=== PATIENT | male | born 1975 | race African-American/Black ===

== ENCOUNTER 2019-09-27 16:00 | Outpatient (CLI) | payer BC | END 2019-09-27 16:01 | disposition home or self-care (01) | LOC: SLEEPLAB 16:00 | PROVIDERS: ATTEND Family Medicine | DX: G47.33 Obstructive sleep apnea (adult) (pediatric) (principal); R06.83 Snoring; I10 Essential (primary) hypertension | CPT/HCPCS: 95806 ==

== ENCOUNTER 2019-10-11 20:30 | Outpatient (CLI) | payer BC | END 2019-10-11 20:31 | disposition home or self-care (01) | LOC: SLEEPLAB 20:30 | PROVIDERS: ATTEND Family Medicine | DX: G47.33 Obstructive sleep apnea (adult) (pediatric) (principal); R06.83 Snoring; I10 Essential (primary) hypertension | CPT/HCPCS: 95811 ==

== ENCOUNTER 2020-11-19 15:49 | Outpatient (CLI) | payer BC | END 2020-11-19 15:50 | disposition home or self-care (01) | LOC: BICRAD 15:49 | PROVIDERS: ATTEND Family Medicine | DX: M25.572 Pain in left ankle and joints of left foot (principal); M79.89 Other specified soft tissue disorders ==